=== PATIENT | female | born 1995 | race Caucasian/White ===

== ENCOUNTER 2016-03-27 04:50 | Inpatient (IN) | payer OTHER ==
[2016-03-27] MEDS ORDERED: DEXTROSE 5%-LACTATED RINGERS 500 ML IV SCH ×2 (05:30→06:30)
[2016-03-27 10:03] LABS: BASOPHIL 0.6 % (0-2.0); EOSINOPHIL 0.8 % (0-4.5); MCH 29.1 pg (25.7-33.7); MCHC 33.7 g/dl (32.0-36.0); MEAN CELL VOLUME 86.4 fl (80-96); MEAN PLT VOLUME 8.7 fl (7.5-11.1); NEUTROPHILS 73.4 % (42.8-82.8); PLATELET COUNT 219 K/MM3 (134-434); RDW 14.3 % (11.6-15.6); WHITE BLOOD COUNT 10.2 K/mm3 (4.0-10.0)
[2016-03-27 10:19] LABS: INR 0.97 (0.82-1.09); PROTHROMBIN TIME (PATIENT) 10.7 SEC (9.98-11.88)
[2016-03-27 10:21] LABS: ACTIVATED PTT 29.1 SECONDS (26.9-34.4)
[2016-03-27 10:43] LABS: CALCIUM 8.3 mg/dL (8.5-10.1); CREATININE 0.5 mg/dL (0.55-1.02)
[2016-03-27] MEDS ORDERED: BUTORPHANOL TARTRATE 1 MG/ML VIAL IVPB ONE (11:23)
[2016-03-27] MEDS ORDERED: PROMETHAZINE HCL 25 MG/1 ML VIAL IVPUSH ONE (11:23)
[2016-03-27] MEDS ORDERED: DEXTROSE 5%-LACTATED RINGERS 1,000 ML IV SCH (11:30)
[2016-03-27 11:56] VITALS: BMI 31.3
[2016-03-27] MEDS ORDERED: OXYTOCIN 15 UNITS/ LR 250 ML 250 ML IVPB SCH (12:15)
[2016-03-27] MEDS ORDERED: TUBERCULIN PPD 5 TU/0.1ML SYRINGE (IN PATIENT USE ONLY) ID ONE (12:15)
--- NOTE | 2016-03-27 12:36 | HP ---
Past Medical History - Primary Care Physician PCP:: Vickie Rg - Admission Chief Complaint: painful contractions History of Present Illness: 20 y/o with SIUP at 39 weeks gestation (EDC 04/03/16 by 11 week ultrasound) presents today with cramps/contractions since early this morning that worsened around 5am. Pt denies LOF/VB. +FM. has been complicated by a +Chlamydia infection in July- treated and test of cure negative. Also patient recently admitted with gastroenteritis and dehydration approx 1.5 weeks ago at [facility]. History Source: Patient, Medical Record Limitations to Obtaining History: No Limitations - Past Medical History MOLDER SHOULDER PAD: No: Migraine, TIA Cardiovascular: No: CAD, HTN Pulmonary: No: Asthma Gastrointestinal: No: GERD, GI Bleed Hepatobiliary: No: Hepatitis B, Hepatitis C Renal/: No: Renal Failure, UTI ...: 3 ...Para: 0 ...Term: 0 ...: 0 ...Spon : 0 ...Induced : 2 ...Multiple Gestation: 0 ...LMP: 06/20/15 ... Weeks Gestation by Dates: 40.1 ...EDC by Dates: 03/26/16 ...EDC by Sono: 04/03/16 Heme/Onc: No: Anemia, Sickle Cell Disease, Sickle Cell Trait Infectious Disease: No: HIV, MRSA, STD's Psych: No: Anxiety, Bipolar, Depression - Past Surgical History Hx Myomectomy: No Hx Transabdominal Cerclage: No - Smoking History Smoking history: Never smoked Have you smoked in the past 12 months: No - Alcohol/Substance Use Hx Alcohol Use: No History of Substance Use: reports: Marijuana (prior to ) - Social History ADL: Independent History of Recent Travel: Yes Home Medications - Allergies Allergies/Adverse Reactions: Allergies Allergy/AdvReac Type Severity Reaction Status Date / Time No Known Drug Allergies Allergy Verified 03/27/16 05:46 - Home Medications Home Medications: Ambulatory Orders Ferrous Gluconate [Iron] 256 mg PO DAILY 03/27/16 Vit No.130/Iron/FA [ Vitamins] 1 each PO DAILY 03/27/16 Review of Systems - Review of Systems Constitutional: reports: No Symptoms Eyes: reports: No Symptoms HENT: reports: No Symptoms Neck: reports: No Symptoms Cardiovascular: reports: No Symptoms Respiratory: reports: No Symptoms Gastrointestinal: reports: No Symptoms Genitourinary: reports: Pain (contraction pain). denies: Vaginal Bleeding Breasts: reports: No Symptoms Reported Musculoskeletal: reports: No Symptoms Integumentary: reports: No Symptoms Neurological: reports: No Symptoms Endocrine: reports: No Symptoms Hematology/Lymphatic: reports: No Symptoms Psychiatric: reports: No Symptoms Physical Exam - Maternity Vital Signs: Vital Signs Temperature 98.2 F 03/27/16 10:45 Pulse Rate 74 03/27/16 12:00 Respiratory Rate 18 03/27/16 12:00 Blood Pressure 134/73 03/27/16 12:00 O2 Sat by Pulse Oximetry (%) Constitutional: Yes: Well Nourished, No Distress, Calm Eyes: Yes: Conjunctiva Clear, EOM Intact HENT: Yes: Atraumatic, Normocephalic Neck: Yes: Supple, Trachea Midline Cardiovascular: Yes: Regular Rate and Rhythm Lungs: Clear to auscultation - Abdominal Exam/OB Fundal Height: 39 Number of Fetuses: Single Presentation: Vertex Contractions: Yes Regularity: Irregular Intensity: Mild/Mod Monitor Mode: External Heart Rate (range): 130 Category: I Accelerations: Uniform Decelerations: None - Vaginal Exam/OB Vaginal Bleediing: No Speculum Exam: No Dilatation (cm): 3.5 Effacement (%): 50 Amniotic Membrane Status: Intact Presentation: Vertex/Position Station: -3 - Physical Exam Edema: Yes Edema: LLE: Trace (nonpitting), RLE: Trace (nonpitting) Integumentary: Yes: WNL Deep Tendon Reflex Grade: Normal +2 Psychiatric: Yes: Alert, Oriented - Labs Lab Results: CBC, BMP 03/27/16 08:15 03/27/16 08:15 Hemorrhage Risk Assessment - Risk Factors Medium Risk Factors: Yes: None High Risk Factors: Yes: None Risk Score: 1 Risk Level: Medium Risk Problem List - Problems (1) Term Code(s): Z34.80 - ENCOUNTER FOR SUPRVSN OF NORMAL , UNSP TRIMESTER (2) Prolonged latent phase of labor Code(s): O62.0 - PRIMARY INADEQUATE CONTRACTIONS Assessment/Plan 20 y/o with SIUP at 39 weeks gestation here in early labor - FHTS cat 1 - admitted to L&D, has made progress slowly to 3-4cm dilated. Will augment labor with pitocin at this time - GBS negative - Analgesia/epidural prn - anticipate
[2016-03-27] MEDS ORDERED: FENTANYL/BUPIVACAINE/NS/PF - PCEA - 50 ML DISP.SYRIN EP SCH (16:45)
[2016-03-27] MEDS ORDERED: ELECTROLYTE-148 SOLN 1,000 ML IV SCH (16:45)
--- NOTE | 2016-03-27 17:22 | PN ---
Ante-Partal Exam - Subjective Subjective: Patient comfortable s/p epidural Vital Signs: Vital Signs Temperature 98.2 F 03/27/16 10:45 Pulse Rate 78 03/27/16 13:00 Respiratory Rate 18 03/27/16 13:00 Blood Pressure 142/80 03/27/16 13:00 O2 Sat by Pulse Oximetry (%) Bleeding: Yes Bleeding Description: Mild Headache: No Visual changes: No Right upper quadrant pain: No Pain (scale 1-10): 1 - Contractions Contractions: Yes Regularity: Regular Intensity: Strong Monitor Mode: External - Exam during Labor Heart Rate: 145 Variability: Moderate Category: I Monitor Accelerations: Present Monitor Decelerations: None Exam: Vaginal Dilatation (cm): 6 Effacement (%): 80 Amniotic Membrane Status: Ruptured (AROM for clear fluid during this examination ) Amniotic Fluid: Clear Presentation: Vertex Station: -1 - Intrapartum Hemorrhage Risk Medium Risk Factors: None High Risk Factors: None Risk Score: 0 Risk Level: Low Risk - Assessment/Plan Assessment/Plan: 20 y/o with SIUP at 39 weeks gestation, labor with augmentation - FHTs cat 1 - labor, s/p epidural and s/p AROM. Continue on pitocin - GBS negative - anticipate
--- NOTE | 2016-03-27 20:18 | PN ---
Ante-Partal Exam - Subjective Subjective: pt feeling pressure/urge to push Vital Signs: Vital Signs Temperature 98.4 F 03/27/16 18:44 Pulse Rate 90 03/27/16 19:50 Respiratory Rate 18 03/27/16 19:50 Blood Pressure 135/80 03/27/16 19:50 O2 Sat by Pulse Oximetry (%) 99 03/27/16 19:50 Bleeding: Yes Bleeding Description: Mild Headache: No Visual changes: No Right upper quadrant pain: No - Contractions Contractions: Yes Regularity: Regular Intensity: Strong Monitor Mode: External - Exam during Labor Heart Rate: 155 Variability: Moderate Category: II Monitor Accelerations: Present Monitor Decelerations: Variable Exam: Vaginal Dilatation (cm): 9 Effacement (%): 90 Amniotic Membrane Status: Ruptured Amniotic Fluid: Clear Presentation: Vertex Station: -1 - Assessment/Plan Assessment/Plan: 20 y/o with SIUP at 39 weeks, labor - FHTS cat 2 with nonrecurrent variable decelerations, moderate variability and accels noted - continuous monitoring - labor, augmented with pitocin - continue active management - GBS negative - anticipate
--- NOTE | 2016-03-27 21:12 | PN ---
Ante-Partal Exam - Subjective Subjective: Pt feels urge to push Vital Signs: Vital Signs Temperature 98.4 F 03/27/16 18:44 Pulse Rate 90 03/27/16 19:50 Respiratory Rate 18 03/27/16 19:50 Blood Pressure 135/80 03/27/16 19:50 O2 Sat by Pulse Oximetry (%) 99 03/27/16 19:50 Bleeding: No Bleeding Description: Mild Headache: No Visual changes: No Right upper quadrant pain: No Pain (scale 1-10): 6 - Contractions Contractions: Yes Regularity: Regular Intensity: Strong Monitor Mode: External - Exam during Labor Heart Rate: 155 Variability: Moderate Category: II Monitor Accelerations: Present Monitor Decelerations: Variable (nonrecurrent) Exam: Vaginal Dilatation (cm): 10 Effacement (%): 100 Amniotic Membrane Status: Ruptured Station: +1 - Assessment/Plan Assessment/Plan: 20 y/o with SIUP at 39 weeks in labor, augmented - FHTS cat 2 - labor, augmented, to begin pushing - gbs negative - anticipate
--- NOTE | 2016-03-27 21:56 | PN ---
Delivery - Delivery Vaginal Delivery: No Problems, Spontaneous Type of Anesthesia: Epidural Episiotomy/Laceration: 2nd degree EBL (cc): 350 Delivery, Single - Stages of Labor Date of Delivery: 03/27/16 Time of Delivery: 21:25 Date Placenta Delivered: 03/27/16 Time Placenta Delivered: :29 Placenta: Yes: Spontaneous - Condition of Electro Mechanical Technologist/Lock Maintenance Supervisor Present: No Gender: Female Position: Left, OA - 1 Minute Total Score: 9 5 Minutes Total Score: 10 - Feeding Plan Initial Plan: Elected not to breastfeed exclusively throughout hospitalization Remarks - Remarks Remarks: Uncomplicated of baby girl from PIPER position tight nuchal cord noted after delivery of head, clamped and cut at perineum remainder of infant delivered with ease mouth and nose bulb suctioned after delivery placenta delivered in tact and spontaneously 2nd degree laceration repaired with 2-0 vicryl suture EBL 350cc mom stable baby to well baby nursery sponge count correct after delivery
[2016-03-27] MEDS ORDERED: METHYLERGONOVINE MALEATE 0.2 MG/1 ML AMP IM PRN (21:58)
[2016-03-27] MEDS ORDERED: WITCH HAZEL 50% (TUCKS) 40 PAD/JAR PAD TP PRN (21:58)
[2016-03-27] MEDS ORDERED: BENZOCAINE 20% 57 GM BOTTLE TP PRN (21:58)
[2016-03-27] MEDS ORDERED: oxyCODONE HCL 5 MG TABLET PO PRN (21:58)
[2016-03-27] MEDS ORDERED: BENZOCAINE 28 GM HEMORRHOIDAL OINTMENT TP PRN (21:58)
[2016-03-27] MEDS ORDERED: BISACODYL 10 MG SUPP.RECT RC PRN (21:58)
[2016-03-27] MEDS ORDERED: OXYTOCIN 20 UNITS in 0.9% NS 1,000 ML IV SCH (22:00)
--- NOTE | 2016-03-27 22:01 | DS ---
Physical Exam-MANAGER MEDICAL WRITING Vital Signs: Vital Signs Temperature 98.4 F 03/27/16 18:44 Pulse Rate 90 03/27/16 19:50 Respiratory Rate 18 03/27/16 19:50 Blood Pressure 135/80 03/27/16 19:50 O2 Sat by Pulse Oximetry (%) 99 03/27/16 19:50 Constitutional: Yes: Well Nourished, No Distress, Calm Eyes: Yes: Conjunctiva Clear, EOM Intact HENT: Yes: Atraumatic, Normocephalic Neck: Yes: Supple, Trachea Midline Cardiovascular: Yes: Regular Rate and Rhythm Respiratory: Yes: Regular, CTA Bilaterally Gastrointestinal: Yes: Normal Bowel Sounds, Soft. No: Tenderness ....Post : Yes: Uterus firm, Uterus non-tender Musculoskeletal: Yes: WNL Extremities: Yes: WNL Wound/Incision: Yes: Clean/Dry, Well Approximated Neurological: Yes: Alert, Oriented Psychiatric: Yes: Alert, Oriented Labs: CBC, BMP 03/27/16 08:15 03/27/16 08:15 Delivery - Delivery Vaginal Delivery: No Problems, Spontaneous Type of Anesthesia: Epidural Episiotomy/Laceration: 2nd degree EBL (cc): 350 Delivery, Single - Stages of Labor Date of Delivery: 03/27/16 Time of Delivery: 21:25 Date Placenta Delivered: 03/27/16 Time Placenta Delivered: 21:29 Placenta: Yes: Spontaneous - Condition of Infant Contact Center Consultant/Parts Designer Present: No Infant Gender: Female Position: Left, OA - 1 Minute Total Score: 9 5 Minutes Total Score: 10 - Paden Feeding Plan Initial Plan: Elected not to breastfeed exclusively throughout hospitalization Discharge Summary Reason For Visit: LABOR Current Active Problems Prolonged latent phase of labor (Acute) Term (Acute) Procedures: Principal: Normal vaginal delivery Hospital Course: Patient was admitted on the morning of 03/27/16 in early labor. The patient's labor was augmented that day with pitocin and she subsequently had an uncomplicated vaginal delivery on 03/27/2016. The patient had an unremarkable post course and was discharged home in stable condition on 03/29/2016. Condition: Good - Instructions Diet, Activity, Other Instructions: Physical activity Resume your normal everyday activity as tolerated but no heavy lifting or exercise until seen by your doctor. You may walk unlimited amounts and climb stairs. You may resume driving the car when you feel safe and comfortable behind the wheel. No sexual activity as instructed for 6 weeks. Wound care If you have stitches, they will dissolve on their own. DO NOT attempt to remove them. Diet There are no dietary restrictions. Eat healthy, high-fiber foods. Drink 6 to 8 glasses of liquid each day. This will assist in keeping your bowels regular. Pain management You may take Tylenol or Ibuprofen (for example, Motrin, Advil etc.) over the counter for pain as needed. You can take up to 600mg of Ibuprofen every 6 hours. DO NOT take more than 2400mg of ibuprofen in a 24 hour period. Call MD for any of the following: Severe pain not relieved by medication Fever of 101 or higher Excessive bleeding or drainage on dressing Inability to urinate Referrals: Vickie Rg DO [Staff Physician] - (6 weeks) Disposition: HOME - Home Medications Comprehensive Discharge Medication List: Ambulatory Orders Ferrous Gluconate [Iron] 256 mg PO DAILY 03/27/16 Vit No.130/Iron/FA [ Vitamins] 1 each PO DAILY 03/27/16
--- NOTE | 2016-03-28 07:08 | PN ---
Post Progress Note - Subjective Subjective: Pt seen/examined and doing well. Pain controlled, tolerating diet. VB/lochia minimal. OOB to void without issues. No n/v. No f/c. No CP/SOB. Type of Delivery: Vital Signs: Vital Signs Temperature 99.4 F 03/28/16 06:00 Pulse Rate 85 03/28/16 06:00 Respiratory Rate 20 03/28/16 06:00 Blood Pressure 131/70 03/28/16 06:00 O2 Sat by Pulse Oximetry (%) 100 03/27/16 22:45 Uterus: Yes: Fundus Firm, Fundus below umbilicus Abdomen/GI: Yes: Abdomen soft, Passing flatus, Tolerating PO. No: Tender Lochia: Yes: Rubra Lochia, amount: Small Extremities: Yes: Calves non-tender, Edema (trace b/l LE - nonpitting) Perineum: Yes: Laceration (2nd degree - repaired and healing well) Activity: Ambulating - Labs Labs: CBC WBC 10.2 K/mm3 (4.0-10.0) H 03/27/16 08:15 RBC 3.97 M/mm3 (3.60-5.2) 03/27/16 08:15 Hgb 11.6 GM/dL (10.7-15.3) 03/27/16 08:15 Hct 34.3 % (32.4-45.2) 03/27/16 08:15 MCV 86.4 fl (80-96) 03/27/16 08:15 MCHC 33.7 g/dl (32.0-36.0) 03/27/16 08:15 RDW 14.3 % (11.6-15.6) 03/27/16 08:15 Plt Count 219 K/MM3 (134-434) 03/27/16 08:15 MPV 8.7 fl (7.5-11.1) 03/27/16 08:15 Neutrophils % 73.4 % (42.8-82.8) 03/27/16 08:15 Lymphocytes % 16.6 % (8-40) 03/27/16 08:15 Monocytes % 8.6 % (3.8-10.2) 03/27/16 08:15 Eosinophils % 0.8 % (0-4.5) 03/27/16 08:15 Basophils % 0.6 % (0-2.0) 03/27/16 08:15 Problem List - Problems (1) Term Code(s): Z34.80 - ENCOUNTER FOR SUPRVSN OF NORMAL , UNSP TRIMESTER (2) Vaginal delivery Code(s): O80 - ENCOUNTER FOR FULL-TERM UNCOMPLICATED DELIVERY Assessment/Plan 20 y/o post day # 1 s/p normal - AFVSS - CBC pending - encourage OOB - PO pain meds, regular diet - routine care
[2016-03-28 09:08] LABS: BASOPHIL 0.5 % (0-2.0); EOSINOPHIL 0.3 % (0-4.5); MCH 28.6 pg (25.7-33.7); MCHC 32.8 g/dl (32.0-36.0); MEAN CELL VOLUME 87.1 fl (80-96); MEAN PLT VOLUME 8.6 fl (7.5-11.1); PLATELET COUNT 206 K/MM3 (134-434); RDW 14.6 % (11.6-15.6); WHITE BLOOD COUNT 13.9 K/mm3 (4.0-10.0)
[2016-03-28] MEDS: ACETAMINOPHEN 325 MG TABLET (FP) PO PRN ×3 (09:11→22:36)
[2016-03-28] MEDS: IBUPROFEN 600 MG TABLET (FP) PO PRN ×3 (09:13→22:40)
[2016-03-28] MEDS ORDERED: SENNOSIDES/DOCUSATE COMBO (SENNA PLUS) TABLET (UD) PO PRN (22:00)
[2016-03-29] MEDS: IBUPROFEN 600 MG TABLET (FP) PO PRN ×2 (05:07→08:19)
[2016-03-29] MEDS: ACETAMINOPHEN 325 MG TABLET (FP) PO PRN ×2 (05:09→08:19)
[2016-03-29 08:48] VITALS: BP 126/87; PULSE 78; TEMP 97.6
[2016-03-29] MEDS ORDERED: DIPHTH,PERTUSS(ACELL),TET 0.5 ML DISP.SYRIN IM ONE (10:00)
== END 2016-03-29 13:00 | disposition home or self-care (01) | DRG 373 ==
LOC: JDEL 04:50 → JLDR 10:45 → J3W 03-28 00:50
PROVIDERS: ADMIT Obstetrics & Gynecology; ATTEND Obstetrics & Gynecology
PROC: 0KQM0ZZ Repair Perineum Muscle, Open Approach (ICD-10-PCS; principal; 2016-03-27)
PROC: 0W8NXZZ Division of Female Perineum, External Approach (ICD-10-PCS; 2016-03-27)
PROC: 10E0XZZ Delivery of Products of Conception, External Approach (ICD-10-PCS; 2016-03-27)
DX: O70.1 Second degree perineal laceration during delivery (principal); Z3A.39 39 weeks gestation of pregnancy; Z37.0 Single live birth
CPT/HCPCS: 36415; 59409; 71020-TC; 80048; 85025; 85610; 85730; 86593; 86850; 86900; 86901